=== PATIENT | female | born 1970 | race Caucasian/White ===

== ENCOUNTER 2016-03-17 08:46 | Emergency (ER) | payer BC ==
[~2016-03-17] VITALS: Ht 162.6 cm; Wt 101.9 kg
[~2016-03-17 08:46] MED LIST: ADVIL,NUPRIN,M200 MG PO; ADVIL200 MG PO; AMOXICILLIN500 M1 PO; B COMPLEX1 EAC2 PO; BENADRYL25 MG PO; CHLORTHALIDONE25 MG PO; CIPRO500 MG PO; DEXILANT60 MG PO; DOXYCYCLINE HY100 MG PO; FIORICET 50-301 EACH PO; FLOMAX0.4 MG PO; KEFLEX500 MG PO; LEVAQUIN250 MG PO; MACRODANTIN100 MG PO; MOBIC15 MG PO; NEBULIZER MC; PERCOCET 5/31 TABLET PO; PROAIR HFA8.5 GM IH; PROMETHAZINE HC25 M1 PO; PROVENTIL,2.5 MG/3 M IH; TORADOL10 MG PO; UROCIT-K15 MEQ PO; ZOFRAN4 MG PO; [UNRECOGNIZED DRUG - CODE] IH
[2016-03-17 09:27] LABS: HEMATOCRIT 45.5 % (36.0-46.0); MCH 30.5 PG (29.0-34.0); MCHC 33.6 G/DL (30.0-36.0); MCV 90.8 FL (83-99); MEAN PLAT.VOLUME 10.5 uM^3 (9.5-12.4); PLATELET COUNT 304 K/uL (156-360); RBC DIS.WIDTH-CV 13.7 % (11.8-14.6); RBC DIS.WIDTH-SD 44.2 % (39-53); RED BLOOD COUNT 5.01 M/uL (3.80-5.20); WHITE BLOOD COUNT 10.9 K/uL (4.1-10.2)
[2016-03-17 09:28] LABS: CHLORIDE 100 mEq/L (99-109); POTASSIUM 3.4 mEq/L (3.7-5.4); SODIUM 141 mEq/L (136-147)
[2016-03-17 09:29] LABS: GLUCOSE 99 mg/dL (70-99)
[2016-03-17 09:31] LABS: ANION GAP 11 MEQ/L (2-14)
[2016-03-17 09:33] LABS: GFR ESTIMATE (CALCULATED) > 59 mL/min/
[2016-03-17 09:40] LABS: TROP-I INTERPRETATION NEGATIVE; TROPONIN-I < 0.01 ng/mL (0.0-0.30); UREA NITROGEN (BUN) 30 mg/dL (9-23)
[2016-03-17] MEDS ORDERED: IMITREX100 MG PO (11:18)
[2016-03-17 11:52] LABS: CREATINE KINASE 33 IU/L (1-294)
[2016-03-17 12:09] LABS: TROP-I INTERPRETATION NEGATIVE; TROPONIN-I < 0.01 ng/mL (0.0-0.30)
[2016-03-17] MEDS ORDERED: MOTRIN800 MG PO (13:18)
[2016-03-17] MEDS ORDERED: VALIUM2 MG PO (13:18)
[2016-03-17 14:37] VITALS: BP 100/58
== END 2016-03-17 14:38 | disposition home or self-care (01) ==
LOC: EME 08:46
PROVIDERS: Emergency Medicine
PROC: 069Y3ZZ Drainage of Lower Vein, Percutaneous Approach (ICD-10-PCS; principal; 2016-03-17)
DX: R07.9 Chest pain, unspecified (principal); K11.9 Disease of salivary gland, unspecified; Z88.2 Allergy status to sulfonamides; Z88.6 Allergy status to analgesic agent
CPT/HCPCS: 70490; 71020; 80048; 82550 91; 83880; 84484; 85027; 93005; 99281; 99285; J1885; J3010; J7030

== ENCOUNTER 2016-10-06 06:14 | Emergency (ER) | payer BC ==
[~2016-10-06] VITALS: Ht 162.6 cm; Wt 104.3 kg
[~2016-10-06 06:14] MED LIST changes: +IMITREX100 MG PO; +MOTRIN800 MG PO; +VALIUM2 MG PO
[2016-10-06 08:11] LABS: EOSINOPHIL (%) 1.8 % (0-5); EOSINOPHIL COUNT 0.1 K/uL (0-0.3); HEMATOCRIT 41.8 % (36.0-46.0); IMMATURE GRANULOCYTE (%) 0.4 % (0.0-0.7); INSTRUMENT ABS NEUTROPHIL CT 4.2 K/uL; LYMPHOCYTE COUNT 2.2 K/uL (1.0-2.8); MCH 30.4 PG (29.0-34.0); MCV 89.5 FL (83-99); MEAN PLAT.VOLUME 10.8 uM^3 (9.5-12.4); MONOCYTE (%) 7.6 % (3-12); MONOCYTE COUNT 0.6 K/uL (0-0.8); NEUTROPHIL (%) 58.8 % (45-76); NEUTROPHIL COUNT 4.2 K/uL (1.8-6.4); PLATELET COUNT 258 K/uL (156-360); RBC DIS.WIDTH-CV 12.6 % (11.8-14.6); RBC DIS.WIDTH-SD 41.6 % (39-53); RED BLOOD COUNT 4.67 M/uL (3.80-5.20); WHITE BLOOD COUNT 7.2 K/uL (4.1-10.2)
[2016-10-06] MEDS ORDERED: NEURONTIN300 MG PO (09:03)
[2016-10-06 09:11] VITALS: BP 155/88
== END 2016-10-06 09:18 | disposition home or self-care (01) ==
LOC: EME 06:14
PROVIDERS: Physician Assistant
DX: M79.7 Fibromyalgia (principal); J45.909 Unspecified asthma, uncomplicated; E34.8 Other specified endocrine disorders; Q61.5 Medullary cystic kidney; Z87.442 Personal history of urinary calculi
CPT/HCPCS: 85025; 99281; 99283; Q0169

== ENCOUNTER 2016-11-08 00:04 | Emergency (ER) | payer BC ==
[~2016-11-08] VITALS: Ht 162.6 cm; Wt 106.6 kg
[~2016-11-08 00:04] MED LIST changes: +NEURONTIN300 MG PO
[2016-11-08] MEDS ORDERED: KEFLEX500 MG PO (01:48)
[2016-11-08 02:04] VITALS: BP 167/112
== END 2016-11-08 02:08 | disposition home or self-care (01) ==
LOC: EME 00:04
DX: L03.115 Cellulitis of right lower limb (principal); J45.909 Unspecified asthma, uncomplicated; K21.9 Gastro-esophageal reflux disease without esophagitis; M79.7 Fibromyalgia
CPT/HCPCS: 99281; 99283